=== PATIENT | male | born 1980 | race African-American/Black ===

== ENCOUNTER 2023-05-05 11:25 | Emergency (ER) | payer OTHER ==
[~2023-05-05] VITALS: Ht 182.9 cm; Wt 104.0 kg
[2023-05-05 11:39] VITALS: O2SAT 98
[2023-05-05] MEDS ORDERED: IBUP-2029 MT (12:26)
[2023-05-05] MEDS ORDERED: METH-653 MT (12:26)
[2023-05-05 12:46] VITALS: BP 128/85; PULSE 82; RESP 20; TEMP 97.9
== END 2023-05-05 13:10 | disposition home or self-care (01) ==
LOC: ER 11:25
DX: M79.10 Myalgia, unspecified site (principal)
CPT/HCPCS: 99283